=== PATIENT | female | born 1965 | race Caucasian/White ===

== ENCOUNTER 2016-10-25 09:19 | Emergency (ER) | payer OTHER ==
[~2016-10-25] VITALS: Ht 170.2 cm; Wt 49.7 kg
[2016-10-25 09:29] VITALS: BP 131/98; PULSE 112; RESP 16; TEMP 98.2; O2SAT 96
[2016-10-25] MEDS ORDERED: METR500T10 PO (11:09)
[2016-10-25] MEDS ORDERED: CEPH500C PO (11:09)
[2016-10-25] MEDS ORDERED: TRAZ100T4 PO (11:09)
[2016-10-25] MEDS ORDERED: VALT1TAB PO (11:09)
[2016-10-25] MEDS ORDERED: SYNT25TA PO (11:09)
--- NOTE | 2016-10-25 11:22 | PD ---
HPI Chief Complaint: Dizziness Time Seen by Provider: 11:07 Travel History International Travel<30 days: No Contact w/Intl Traveler<30days: No Traveled to known affect area: No History of Present Illness HPI 51yo F with PMH of anxiety, hysterectomy and left oopherectomy for fibroids presents to the ED with multiple complaints. Pt states she has been having abdominal pain for 4 days and went to her urologist 2 days ago. Had CTa/p that was negative and given antibiotics for UTI. Pt then went to [facility] on the same day and had a second CTa/p that was negative. Pt also diagnosed with bacteria vaginosis and is on metronidazole on that. Pt states she feels that something is not right. Feels shaky, dizzy, and out of body experience. Pt is very anxious appearing. States she also has chest pressure, headache and generally do not feel well. Denies any vomiting, diarrhea, focal weakness or numbness. PFSH Past Medical History Kidney Stones: Yes Thyroid Disease: Yes ?: Not Past Surgical History Hysterectomy: Yes (AND UNILATERAL OOPHRECTOMY) Other Surgery: Yes (MASTOIDECTOMY) Social History Alcohol Use: Yes (NO ETOH X'S 3 WEEKS) Tobacco Use: Yes (1 PPD) Allergies-Medications (Allergen,Severity, Reaction): Coded Allergies: Tylenol #3 (Verified Allergy, Severe, FACIAL SWELLING AND DISCOLOR, ) Darvocet-N 100 (Verified Allergy, Unknown, ITCH, 10/25/16) Reported Meds & Prescriptions Reported Meds & Active Scripts Active Reported Valtrex (Valacyclovir HCl) 1 Gm Tab 1,000 Mg PO DAILY Synthroid (Levothyroxine Sodium) 25 Mcg Tab 25 Mcg PO DAILY Cephalexin 500 Mg Cap 500 Mg PO Q12H Metronidazole 500 Mg Tab 500 Mg PO BID Review of Systems Except as stated in HPI: all other systems reviewed are Neg Physical Exam Narrative GENERAL: 51yo F anxious appearing. SKIN: Warm and dry. HEAD: Atraumatic. Normocephalic. EYES: Pupils equal and round. EOMI. No scleral icterus. No injection or drainage. ENT: No nasal bleeding or discharge. Mucous membranes pink and moist. NECK: Trachea midline. No JVD. No nuchal rigidity. CARDIOVASCULAR: Regular rate and rhythm. No murmur appreciated. RESPIRATORY: No accessory muscle use. Clear to auscultation. Breath sounds equal bilaterally. GASTROINTESTINAL: Abdomen soft, mild suprapubic tenderness to palpation. No rebound tenderness or guarding. MUSCULOSKELETAL: No obvious deformities. No clubbing. No cyanosis. No edema. NEUROLOGICAL: Awake and alert. No obvious cranial nerve deficits. Motor grossly within normal limits. Normal speech. Data Data Last Documented VS Vital Signs Date Time Temp Pulse Resp B/P Pulse Ox O2 Delivery O2 Flow Rate FiO2 10/25/16 13:13 84 15 133/89 96 Room Air 10/25/16 09:29 98.2 Orders Complete Blood Count With Diff (10/25/16 11:17) Comprehensive Metabolic Panel (10/25/16 11:17) Troponin I (10/25/16 11:17) Lorazepam Inj (Ativan Inj) (10/25/16 11:30) Sodium Chlor 0.9% 1000 Ml Inj (Ns 1000 M (10/25/16 11:30) Urinalysis - C+S If Indicated (10/25/16 11:23) Electrocardiogram (10/25/16 ) Ketorolac Inj (Toradol Inj) (10/25/16 12:45) Labs Laboratory Tests Test 10/25/16 10/25/16 11:25 11:37 Urine Collection Type CLEAN CATCH Urine Color YELLOW Urine Turbidity CLEAR Urine pH 6.0 Urine Specific [place] 1.005 Urine Protein NEG mg/dL Urine Glucose (UA) NEG mg/dL Urine Ketones NEG mg/dL Urine Occult Blood NEG Urine Nitrite NEG Urine Bilirubin NEG Urine Leukocyte Esterase NEG Urine WBC 0-2 /hpf Urine Squamous Epithelial 0-5 /hpf Cells Microscopic Urinalysis Comment CULT NOT INDICATED Urine Collection Time 11:25 White Blood Count 8.5 TH/MM3 Red Blood Count 4.65 MIL/MM3 Hemoglobin 15.9 GM/DL Hematocrit 46.2 % Mean Corpuscular Volume 99.3 FL Mean Corpuscular Hemoglobin 34.1 PG Mean Corpuscular Hemoglobin 34.3 % Concent Red Cell Distribution Width 12.9 % Platelet Count 250 TH/MM3 Mean Platelet Volume 8.4 FL Neutrophils (%) (Auto) 63.8 % Lymphocytes (%) (Auto) 24.7 % Monocytes (%) (Auto) 7.3 % Eosinophils (%) (Auto) 0.3 % Basophils (%) (Auto) 3.9 % Neutrophils # (Auto) 5.5 TH/MM3 Lymphocytes # (Auto) 2.1 TH/MM3 Monocytes # (Auto) 0.6 TH/MM3 Eosinophils # (Auto) 0.0 TH/MM3 Basophils # (Auto) 0.3 TH/MM3 CBC Comment DIFF FINAL Differential Comment Sodium Level 140 MEQ/L Potassium Level 4.4 MEQ/L Chloride Level 105 MEQ/L Carbon Dioxide Level 26.0 MEQ/L Anion Gap 9 MEQ/L Blood Urea Nitrogen 7 MG/DL Creatinine 0.64 MG/DL Estimat Glomerular Filtration 97 ML/MIN Rate Random Glucose 97 MG/DL Calcium Level 8.8 MG/DL Total Bilirubin 0.5 MG/DL Aspartate Amino Transf 19 U/L (AST/SGOT) Alanine Aminotransferase 16 U/L (ALT/SGPT) Alkaline Phosphatase 54 U/L Troponin I LESS THAN 0.02 NG/ML Total Protein 7.3 GM/DL Albumin 4.0 GM/DL MDM Medical Decision Making Medical Screen Exam Complete: Yes Emergency Medical Condition: Yes Interpretation(s) EKG: NSR 80bpm. Normal axis. No ST segment elevation or depression. T wave is peaked. Laboratory Tests Test 10/25/16 10/25/16 11:25 11:37 Urine Collection Type CLEAN CATCH Urine Color YELLOW (YELLW/STRAW) Urine Turbidity CLEAR (CLEAR) Urine pH 6.0 (5.0-8.5) Urine Specific [place] 1.005 (1.002-1.035) Urine Protein NEG mg/dL (NEG-TRACE) Urine Glucose (UA) NEG mg/dL (NEG) Urine Ketones NEG mg/dL (NEG) Urine Occult Blood NEG (NEG) Urine Nitrite NEG (NEG) Urine Bilirubin NEG (NEG) Urine Leukocyte Esterase NEG (NEG) Urine WBC 0-2 /hpf (0-5) Urine Squamous Epithelial 0-5 /hpf (0-5) Cells Microscopic Urinalysis Comment CULT NOT INDICATED Urine Collection Time 11:25 White Blood Count 8.5 TH/MM3 (4.0-11.0) Red Blood Count 4.65 MIL/MM3 (4.00-5.30) Hemoglobin 15.9 GM/DL (11.6-15.3) Hematocrit 46.2 % (35.0-46.0) Mean Corpuscular Volume 99.3 FL (80.0-100.0) Mean Corpuscular Hemoglobin 34.1 PG (27.0-34.0) Mean Corpuscular Hemoglobin 34.3 % Concent (32.0-36.0) Red Cell Distribution Width 12.9 % (11.6-17.2) Platelet Count 250 TH/MM3 (150-450) Mean Platelet Volume 8.4 FL (7.0-11.0) Neutrophils (%) (Auto) 63.8 % (16.0-70.0) Lymphocytes (%) (Auto) 24.7 % (9.0-44.0) Monocytes (%) (Auto) 7.3 % (0.0-8.0) Eosinophils (%) (Auto) 0.3 % (0.0-4.0) Basophils (%) (Auto) 3.9 % (0.0-2.0) Neutrophils # (Auto) 5.5 TH/MM3 (1.8-7.7) Lymphocytes # (Auto) 2.1 TH/MM3 (1.0-4.8) Monocytes # (Auto) 0.6 TH/MM3 (0-0.9) Eosinophils # (Auto) 0.0 TH/MM3 (0-0.4) Basophils # (Auto) 0.3 TH/MM3 (0-0.2) CBC Comment DIFF FINAL Differential Comment Sodium Level 140 MEQ/L (136-145) Potassium Level 4.4 MEQ/L (3.5-5.1) Chloride Level 105 MEQ/L (98-107) Carbon Dioxide Level 26.0 MEQ/L (21.0-32.0) Anion Gap 9 MEQ/L (5-15) Blood Urea Nitrogen 7 MG/DL (7-18) Creatinine 0.64 MG/DL (0.50-1.00) Estimat Glomerular Filtration 97 ML/MIN (>89) Rate Random Glucose 97 MG/DL (74-106) Calcium Level 8.8 MG/DL (8.5-10.1) Total Bilirubin 0.5 MG/DL (0.2-1.0) Aspartate Amino Transf 19 U/L (15-37) (AST/SGOT) Alanine Aminotransferase 16 U/L (10-53) (ALT/SGPT) Alkaline Phosphatase 54 U/L (45-117) Troponin I LESS THAN 0.02 NG/ML (0.02-0.05) Total Protein 7.3 GM/DL (6.4-8.2) Albumin 4.0 GM/DL (3.4-5.0) Differential Diagnosis Anxiety vs. cystitis vs. electrolyte abnormality vs. dehydration Narrative Course 51yo F with multiple complaints. Labs reviewed, no leukocytosis. H/H elevated. Troponin negative. CMP unremarkable. UA negative. Pt given NS IVF and ativan 1mg IV. Pt is very anxious and physical exam unremarkable. Pt feels better after ativan and toradol. Return precautions given. Diagnosis Primary Impression: Abdominal pain Qualified Code: R10.9 - Abdominal pain, unspecified location Patient Instructions: General Instructions Departure Forms: Tests/Procedures Additional Instructions: Please follow up with your PMD in 3-7 days. Return to the ED if your symptoms worsen. Med/Other Pt SpecificInfo: Prescription(s) given Scripts Ibuprofen 400 Mg Wcg449 Mg PO Q8H PRN (PAIN SCALE 1 TO 4) #20 TAB Ref 0 Prov:Coleen Vázquez DO 10/25/16 Disposition: 01 DISCHARGE HOME Condition: Stable Coleen Vázquez DO Oct 25, 2016 11:22
[2016-10-25] MEDS ORDERED: LORazepam 2 MG/ML VIAL IV PUSH ONE (11:30)
[2016-10-25] MEDS ORDERED: SODIUM CHLOR 0.9% 1000 ML INJ 1,000 ML IV ONE (11:30)
[2016-10-25 11:50] LABS: BLOOD, URINE NEG (NEG); GLUCOSE,URINE NEG (NEG); KETONE, URINE NEG (NEG); NITRITE,URINE NEG (NEG)
[2016-10-25 11:51] LABS: AUTOMATED NEUTROPHIL # 5.5 TH/MM3 (1.8-7.7); BASOPHIL # 0.3 TH/MM3 (0-0.2); BASOPHIL % 3.9 % (0.0-2.0); EOSINOPHIL % 0.3 % (0.0-4.0); HEMATOCRIT 46.2 % (35.0-46.0); HEMO FLAGS DIFF FINAL; LYMPH % 24.7 % (9.0-44.0); LYMPHOCYTE # 2.1 TH/MM3 (1.0-4.8); MEAN CELL VOLUME 99.3 FL (80.0-100.0); MEAN CORPUSCULAR HEMOGLOBIN 34.1 PG (27.0-34.0); MEAN CORPUSCULAR HGB CONC 34.3 % (32.0-36.0); MONO % 7.3 % (0.0-8.0); NEUT % 63.8 % (16.0-70.0); PLATELET COUNT 250 TH/MM3 (150-450); RED BLOOD COUNT 4.65 MIL/MM3 (4.00-5.30); RED CELL DISTRIBUTION WIDTH 12.9 % (11.6-17.2); WHITE BLOOD COUNT 8.5 TH/MM3 (4.0-11.0)
[2016-10-25 11:59] LABS: COMMENT (UR) CULT NOT INDICATED; CULTURE IF INDICATED CULT NOT INDICATED; METHOD OF COLLECTION CLEAN CATCH; SQUAMOUS EPITHELIAL CELL URINE 0-5 /hpf (0-5); URINE COLOR YELLOW (YELLW/STRAW); WBC, URINE 0-2 /hpf (0-5)
[2016-10-25 12:01] LABS: CHLORIDE 105 MEQ/L (98-107); POTASSIUM 4.4 MEQ/L (3.5-5.1); SODIUM (NA) 140 MEQ/L (136-145)
[2016-10-25 12:04] LABS: ANION GAP 9 MEQ/L (5-15); BLOOD UREA NITROGEN 7 MG/DL (7-18)
[2016-10-25 12:07] LABS: ALT (GPT) 16 U/L (10-53); AST (GOT) 19 U/L (15-37); GLOMERULAR FILTRATION RATE 97 ML/MIN (>89)
[2016-10-25 12:09] LABS: TOTAL BILIRUBIN ADULT 0.5 MG/DL (0.2-1.0)
[2016-10-25 12:10] LABS: ALKALINE PHOSPHATASE 54 U/L (45-117)
[2016-10-25] MEDS ORDERED: KETOROLAC TROMETHAMINE 30 MG/ML (IVP) VIAL IV PUSH ONE (12:45)
[2016-10-25 13:13] VITALS: BP 133/89; PULSE 84; RESP 15; O2SAT 96
[2016-10-25] MEDS ORDERED: IBUP400T20 PO (13:17)
--- NOTE | 2016-10-26 17:22 | EKG ---
Date Performed: 10/25/2016 Time Performed: 11:51:04 PTAGE: 51 years EKG: Sinus rhythm rSr'(V1) - probable normal variant Normal ECG NO PREVIOUS TRACING DOCTOR: Ava Lovelace Interpretating Date/Time 10/26/2016 17:16:51
== END 2016-10-25 13:55 | disposition home or self-care (01) ==
LOC: PHED 09:19
DX: R10.9 Unspecified abdominal pain (principal); R42 Dizziness and giddiness; R51 Headache; R07.89 Other chest pain; F17.210 Nicotine dependence, cigarettes, uncomplicated; N76.0 Acute vaginitis
CPT/HCPCS: 80053; 81001; 84484; 85025; 93005; 96361; 96374; 96375; 99284; J1885; J2060; J7030

== ENCOUNTER 2016-11-19 08:30 | Emergency (ER) | payer OTHER ==
[~2016-11-19] VITALS: Ht 170.2 cm; Wt 48.0 kg
[~2016-11-19 08:30] MED LIST: CEPH500C PO; IBUP400T20 PO; METR500T10 PO; SYNT25TA PO; TRAZ100T4 PO; VALT1TAB PO
[2016-11-19 08:39] VITALS: BP 138/97; PULSE 118; RESP 20; TEMP 98.1; O2SAT 97
[2016-11-19] MEDS ORDERED: LORazepam 2 MG/ML VIAL IV PUSH ONE (09:15)
--- NOTE | 2016-11-19 09:18 | PD ---
HPI Chief Complaint: GI Complaint Time Seen by Provider: 08:58 Travel History International Travel<30 days: No Contact w/Intl Traveler<30days: No Traveled to known affect area: No History of Present Illness HPI The patient was seen and examined in the presence of the nurse. This patient complains of feeling shaky and anxious and tremulous. She admits to some anxiety over the last month. She takes Synthroid but has not had her thyroid function checked in a long time. She did see her primary physician last week and has a recheck in 2 days. Symptoms severity is moderate. She denies suicidal thought or depression. No alleviating factors. Duration 3 days PFSH Past Medical History Kidney Stones: Yes Thyroid Disease: Yes ?: Not Past Surgical History Hysterectomy: Yes (AND UNILATERAL OOPHRECTOMY) Other Surgery: Yes (MASTOIDECTOMY) Social History Alcohol Use: Yes (THIS WEEKEND) Tobacco Use: Yes (1 PPD) Substance Use: No Allergies-Medications (Allergen,Severity, Reaction): Coded Allergies: Tylenol #3 (Verified Allergy, Severe, FACIAL SWELLING AND DISCOLOR, ) Darvocet-N 100 (Verified Allergy, Unknown, ITCH, 11/19/16) Reported Meds & Prescriptions Reported Meds & Active Scripts Active Reported Trazodone (Trazodone HCl) 100 Mg Tab 100 Mg PO HS Synthroid (Levothyroxine Sodium) 25 Mcg Tab 25 Mcg PO DAILY Review of Systems General / Constitutional: No: Fever Eyes: No: Visual changes HENT: No: Headaches Cardiovascular: No: Chest Pain or Discomfort Respiratory: No: Shortness of Breath Gastrointestinal: Positive: Nausea, No: Abdominal Pain Genitourinary: No: Dysuria Musculoskeletal: No: Pain Skin: No Rash Neurologic: Positive: Tremor, No: Weakness Psychiatric: Positive: Anxiety, No: Depression Endocrine: No: Polydipsia Hematologic/Lymphatic: No: Easy Bruising Physical Exam Narrative GENERAL: Thin and anxious well-developed patient in no apparent distress. SKIN: Warm and dry. HEAD: Atraumatic. Normocephalic. EYES: Pupils equal and round. No scleral icterus. No injection or drainage. ENT: No nasal bleeding or discharge. Mucous membranes pink and moist. NECK: Trachea midline. No JVD. CARDIOVASCULAR: Regular rate and rhythm. No murmur appreciated. RESPIRATORY: No accessory muscle use. Clear to auscultation. Breath sounds equal bilaterally. GASTROINTESTINAL: Abdomen soft, non-tender, nondistended. Hepatic and splenic margins not palpable. MUSCULOSKELETAL: No obvious deformities. No clubbing. No cyanosis. No edema. NEUROLOGICAL: Awake and alert. No obvious cranial nerve deficits. Motor grossly within normal limits. Normal speech. Has tremulous bilateral upper extremities that she seems to be able to control. Normal gait PSYCHIATRIC: Anxious mood and affect; insight and judgment normal. Data Data Last Documented VS Vital Signs Date Time Temp Pulse Resp B/P Pulse Ox O2 Delivery O2 Flow Rate FiO2 11/19/16 09:58 90 20 118/81 94 11/19/16 08:39 98.1 Orders Iv Access Insert/Monitor (11/19/16 09:07) Complete Blood Count With Diff (11/19/16 09:07) Basic Metabolic Panel (Bmp) (11/19/16 09:07) Thyroid Stimulating Hormone (11/19/16 09:07) Lorazepam Inj (Ativan Inj) (11/19/16 09:15) Labs Laboratory Tests Test 11/19/16 09:10 White Blood Count 10.7 TH/MM3 Red Blood Count 4.35 MIL/MM3 Hemoglobin 14.6 GM/DL Hematocrit 43.7 % Mean Corpuscular Volume 100.5 FL Mean Corpuscular Hemoglobin 33.6 PG Mean Corpuscular Hemoglobin 33.4 % Concent Red Cell Distribution Width 12.4 % Platelet Count 244 TH/MM3 Mean Platelet Volume 7.9 FL Neutrophils (%) (Auto) 75.6 % Lymphocytes (%) (Auto) 17.0 % Monocytes (%) (Auto) 6.5 % Eosinophils (%) (Auto) 0.2 % Basophils (%) (Auto) 0.7 % Neutrophils # (Auto) 8.1 TH/MM3 Lymphocytes # (Auto) 1.8 TH/MM3 Monocytes # (Auto) 0.7 TH/MM3 Eosinophils # (Auto) 0.0 TH/MM3 Basophils # (Auto) 0.1 TH/MM3 CBC Comment DIFF FINAL Differential Comment Sodium Level 142 MEQ/L Potassium Level 3.6 MEQ/L Chloride Level 103 MEQ/L Carbon Dioxide Level 29.3 MEQ/L Anion Gap 10 MEQ/L Blood Urea Nitrogen 7 MG/DL Creatinine 0.76 MG/DL Estimat Glomerular Filtration 80 ML/MIN Rate Random Glucose 96 MG/DL Calcium Level 8.2 MG/DL Thyroid Stimulating Hormone 0.337 uIU/ML 3rd Gen [facility] Medical Decision Making Medical Screen Exam Complete: Yes Emergency Medical Condition: Yes Medical Record Reviewed: Yes Differential Diagnosis Anxiety, panic, hyperthyroid, withdrawal Narrative Course I have reviewed the patient's electronic medical record. Patient was seen here a month ago and had normal lab studies at that time. She had a multitude of atypical complaints IV placed I gave her a dose of IV Ativan for what appears to be severe anxiety symptoms CBC is normal Metabolic profile is normal A TSH done to rule out significant hyperthyroid state. Results were 0.33 just below the bottom of normal range. So close to normal at I don't believe this is responsible in anyway for symptoms. She has primary follow-up in 2 days I wrote her a dozen Zofran to use as needed and a dozen Vistaril to use as needed. She is warned about potential sedation Diagnosis Primary Impression: Anxiety Additional Impressions: Tremor, anxiety related Nausea Additional Instructions: The patient was advised to follow up with their physician and return if they worsen. The patient was warned about potential sedation for the medications they will receive on prescription. Med/Other Pt SpecificInfo: Prescription(s) given Scripts Hydroxyzine Pamoate (Vistaril)25 Mg Cap25 Mg PO Q6H PRN (ANXIETY) #12 CAP Ref 0 Prov:Gerardo Kessler MD 11/19/16 Ondansetron (Zofran)4 Mg Tab4 Mg PO Q6HR PRN (NAUSEA OR VOMITING) #12 TAB Ref 0 Prov:Gerardo Kessler MD 11/19/16 Disposition: DISCHARGE HOME Condition: Stable Gerardo Kessler MD Nov 19, 2016 09:18
[2016-11-19 09:29] LABS: AUTOMATED NEUTROPHIL # 8.1 TH/MM3 (1.8-7.7); BASOPHIL # 0.1 TH/MM3 (0-0.2); BASOPHIL % 0.7 % (0.0-2.0); EOSINOPHIL % 0.2 % (0.0-4.0); HEMATOCRIT 43.7 % (35.0-46.0); LYMPHOCYTE # 1.8 TH/MM3 (1.0-4.8); MEAN CELL VOLUME 100.5 FL (80.0-100.0); MEAN CORPUSCULAR HEMOGLOBIN 33.6 PG (27.0-34.0); MEAN CORPUSCULAR HGB CONC 33.4 % (32.0-36.0); MONO % 6.5 % (0.0-8.0); NEUT % 75.6 % (16.0-70.0); PLATELET COUNT 244 TH/MM3 (150-450); RED BLOOD COUNT 4.35 MIL/MM3 (4.00-5.30); RED CELL DISTRIBUTION WIDTH 12.4 % (11.6-17.2); WHITE BLOOD COUNT 10.7 TH/MM3 (4.0-11.0)
[2016-11-19 09:31] LABS: HEMO FLAGS DIFF FINAL
[2016-11-19 09:58] VITALS: BP 118/81; PULSE 90; RESP 20; O2SAT 94
[2016-11-19 09:58] LABS: BICARBONATE 29.3 MEQ/L (21.0-32.0)
[2016-11-19 10:00] LABS: POTASSIUM 3.6 MEQ/L (3.5-5.1)
[2016-11-19] MEDS ORDERED: VIST25CA PO (10:23)
[2016-11-19] MEDS ORDERED: ZOFR4TAB PO (10:23)
== END 2016-11-19 10:39 | disposition home or self-care (01) ==
LOC: PHED 08:30
DX: F41.9 Anxiety disorder, unspecified (principal); F17.210 Nicotine dependence, cigarettes, uncomplicated; R25.1 Tremor, unspecified
CPT/HCPCS: 80048; 84443; 85025; 96374; 99283; J2060